=== PATIENT | male | born 1980 | race Caucasian/White ===

== ENCOUNTER 2016-09-25 13:04 | Observation (INO) | payer OTHER ==
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
[2016-09-25] MEDS ORDERED: Iopamidol 755 MG/ML 500 ML Multipack Bottle IVPUSH STA (13:27)
[2016-09-25 13:53] LABS: CHLORIDE,CL 107 mmol/L (98-110); SODIUM,NA 141 mmol/L (136-146)
[2016-09-25] MEDS ORDERED: HYDROmorphone 1 MG/ML Syringe IVPUSH ONE (14:53)
[2016-09-25] MEDS ORDERED: diphenhydrAMINE 50 MG/ML SDV IVPUSH PRN (15:02)
[2016-09-25] MEDS ORDERED: Ondansetron 4 MG/2 ML SDV IVPUSH PRN (15:02)
[2016-09-25] MEDS ORDERED: Promethazine 25 MG/ML SDV IM PRN (15:02)
[2016-09-25] MEDS: Lactated Ringers 1,000 ML IV SCH (15:55)
[2016-09-25] MEDS: Acetaminophen/oxyCODONE 325-5 MG Tab PO PRN (16:26)
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
[2016-09-25] MEDS: Ketorolac 10 MG Tab PO SCH ×2 (17:22→22:39)
[2016-09-25] MEDS ORDERED: Lactated Ringers 1,000 ML IV ONE (18:06)
[2016-09-25] MEDS ORDERED: LORazepam 2 MG/ML MDV IVPUSH PRN (18:09)
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
[2016-09-25] MEDS: HYDROmorphone 2 MG/ML Syringe IVPUSH PRN (20:15)
[2016-09-25] MEDS ORDERED: Folic Acid 1 MG Tab PO SCH (21:00)
[2016-09-25] MEDS ORDERED: Thiamine 100 MG Tab PO SCH (21:00)
[2016-09-26] MEDS: Lactated Ringers 1,000 ML IV SCH ×2 (00:31→08:23)
[2016-09-26] MEDS: HYDROmorphone 2 MG/ML Syringe IVPUSH PRN ×3 (01:15→11:15)
[2016-09-26] MEDS: Ketorolac 10 MG Tab PO SCH ×2 (05:31→11:18)
[2016-09-26] MEDS ORDERED: hydrALAZINE 20 MG/ML SDV IVPUSH PRN (07:31)
[2016-09-26] MEDS ORDERED: Docusate Sodium 100 MG Cap PO SCH (09:00)
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
[2016-09-26] MEDS: Acetaminophen/oxyCODONE 325-5 MG Tab PO PRN (09:56)
[2016-09-26 11:54] VITALS: BP 150/104
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
== END 2016-09-26 11:40 ==
LOC: MW.ED 13:04 → MW.ICU 15:02 → INTOOBSV 15:02 → MW.ICU 15:32
PROVIDERS: ADMIT Surgery; ATTEND Surgery
DX: S42.112A Displaced fracture of body of scapula, left shoulder, initial encounter for closed fracture (principal); S22.41XA Multiple fractures of ribs, right side, initial encounter for closed fracture; S27.322A Contusion of lung, bilateral, initial encounter; S27.0XXA Traumatic pneumothorax, initial encounter; F10.239 Alcohol dependence with withdrawal, unspecified; T14.90 Injury, unspecified; F41.9 Anxiety disorder, unspecified; F32.9 Major depressive disorder, single episode, unspecified; Z79.899 Other long term (current) drug therapy; V89.2XXA Person injured in unspecified motor-vehicle accident, traffic, initial encounter
CPT/HCPCS: 36415; 70450; 71010; 71260; 72125; 73030; 73060; 74177; 80053; 80305; 81001; 85025; 93005; 96361; 96374; 96375; 99285; A4566; A9270; G0378; G0480; J1170; J2060; J7120; Q9967; 99284; G0390